=== PATIENT | female | born 1990 | race Caucasian/White ===

== ENCOUNTER 2016-09-16 16:41 | Emergency (ER) | payer SELFPAY ==
[2016-09-16] MEDS ORDERED: Ketorolac 60 MG/2 ML SDV IM ONE (17:07)
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
[2016-09-16 17:13] VITALS: BP 128/79
== END 2016-09-16 19:00 | disposition home or self-care (01) ==
LOC: FB.ED 16:41
DX: S33.6XXA Sprain of sacroiliac joint, initial encounter (principal); J45.909 Unspecified asthma, uncomplicated; F41.9 Anxiety disorder, unspecified; F32.9 Major depressive disorder, single episode, unspecified; F17.210 Nicotine dependence, cigarettes, uncomplicated; Z88.8 Allergy status to other drugs, medicaments and biological substances; X58.XXXA Exposure to other specified factors, initial encounter
CPT/HCPCS: 36415; 80053; 81001; 85025; 86140; 96372; 99284; J1885; 99283

== ENCOUNTER 2017-05-05 21:57 | Emergency (ER) | payer MEDICAID, OTHER ==
[2017-05-05] MEDS ORDERED: Acetaminophen/HYDROcodone 325-5 MG Tab PO ONE (21:58)
[2017-05-05] MEDS ORDERED: HYDROmorphone 2 MG/ML SDV IVPUSH ONE (23:26)
[2017-05-05] MEDS ORDERED: Ondansetron 4 MG/2 ML SDV IVPUSH ONE (23:27)
[2017-05-05] MEDS ORDERED: Sodium Chloride 0.9% 10 ML Syringe FLUSH PRN (23:47)
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
[2017-05-06 04:15] VITALS: BP 129/85
== END 2017-05-06 01:38 | disposition home or self-care (01) ==
LOC: FB.ED 21:57
DX: S22.009A Unspecified fracture of unspecified thoracic vertebra, initial encounter for closed fracture (principal); M67.911 Unspecified disorder of synovium and tendon, right shoulder; J45.909 Unspecified asthma, uncomplicated; F32.9 Major depressive disorder, single episode, unspecified; F90.9 Attention-deficit hyperactivity disorder, unspecified type; F17.210 Nicotine dependence, cigarettes, uncomplicated; Z79.899 Other long term (current) drug therapy; Z88.1 Allergy status to other antibiotic agents; Z88.8 Allergy status to other drugs, medicaments and biological substances; V49.88XA Car occupant (driver) (passenger) injured in other specified transport accidents, initial encounter; Y92.410 Unspecified street and highway as the place of occurrence of the external cause
CPT/HCPCS: 36415; 71045; 72070; 73020; 73060; 73070; 80053; 85025; 96374; 96375; 99285; A9270; J1170; J2405; J7050